=== PATIENT | female | born 1985 | race Caucasian/White ===

== ENCOUNTER 2022-07-04 19:45 | Inpatient (IN) | payer BC ==
[2022-07-04] MEDS ORDERED: Metoclopramide 10 MG/2 ML SDV IVPUSH ONE (21:17)
[2022-07-04] MEDS ORDERED: ceFAZolin 2 GM in Sodium Chloride 0.9% 50 ML IV ONE (21:17)
[2022-07-04] MEDS ORDERED: Sodium Chloride 0.9% 10 ML Syringe FLUSH PRN (21:17)
[2022-07-04] MEDS ORDERED: Citric Acid/Sodium Citrate Solution 30 ML Cup PO ONE (21:17)
[2022-07-04] MEDS ORDERED: Ketorolac 30 MG/ML SDV ONE (21:23)
[2022-07-04] MEDS ORDERED: Ondansetron 4 MG/2 ML SDV ONE (21:23)
[2022-07-04] MEDS ORDERED: Morphine PF 10 MG/10 ML SDV ONE (21:23)
[2022-07-04] MEDS ORDERED: ceFAZolin 2 GM Vial ONE (21:24)
[2022-07-04] MEDS ORDERED: Oxytocin/Lactated Ringers 10 UNIT/1,000 ML BAG IV SCH (21:30)
[2022-07-04] MEDS ORDERED: Lactated Ringers 1,000 ML IV SCH (21:30)
[2022-07-04] MEDS ORDERED: Bupivacaine 0.5% 30 ML SDV ONE (21:35)
[2022-07-04] MEDS ORDERED: fentaNYL 100 MCG/2 ML SDV IVPUSH PRN (21:44)
[2022-07-04] MEDS ORDERED: Ondansetron 4 MG/2 ML SDV IVPUSH PRN (21:44)
[2022-07-04] MEDS ORDERED: Meperidine 50 MG/ML Vial IVPUSH PRN (21:44)
[2022-07-04] MEDS ORDERED: diphenhydrAMINE 50 MG/ML SDV IVPUSH PRN (21:44)
[2022-07-04] MEDS ORDERED: Oxytocin 10 Units/1 ML SDV ONE ×2 (22:03)
[2022-07-05] MEDS ORDERED: Naloxone 0.4 MG/ML SDV IVPUSH PRN (00:14)
[2022-07-05] MEDS ORDERED: Ondansetron 4 MG/2 ML SDV IV PRN (00:14)
[2022-07-05] MEDS ORDERED: Docusate Sodium 100 MG Cap PO PRN (00:14)
[2022-07-05] MEDS ORDERED: diphenhydrAMINE 50 MG/ML SDV IVPUSH PRN (00:14)
[2022-07-05] MEDS ORDERED: Ibuprofen 600 MG Tab PO SCH (00:14)
[2022-07-05] MEDS ORDERED: Dextrose 5%-Lactated Ringers 1,000 ML IV SCH (00:14)
[2022-07-05] MEDS ORDERED: Acetaminophen/oxyCODONE 325-5 MG Tab PO PRN ×2 (00:14)
[2022-07-05] MEDS ORDERED: ePHEDrine 50 MG/ML SDV IVPUSH PRN (00:14)
[2022-07-05] MEDS: Ibuprofen 600 MG Tab PO SCH ×5 (03:30→21:45)
[2022-07-05] MEDS ORDERED: Sodium Chloride 0.9% 10 ML Syringe FLUSH SCH (09:00)
[2022-07-05] MEDS: Prenatal Multivitamin with Calcium/Folic Acid/Iron Tab PO SCH (15:16)
[2022-07-05] MEDS: Simethicone 80 MG Tab.Chew PO SCH ×3 (15:17→21:47)
[2022-07-06] MEDS: Ibuprofen 600 MG Tab PO SCH ×2 (05:30→11:21)
[2022-07-06] MEDS: Prenatal Multivitamin with Calcium/Folic Acid/Iron Tab PO SCH (11:22)
[2022-07-06] MEDS: Simethicone 80 MG Tab.Chew PO SCH (11:22)
[2022-07-06 11:26] VITALS: BP 104/55; PULSE 77
== END 2022-07-06 11:05 | disposition home or self-care (01) | DRG 540 ==
LOC: JD.OBCHECK 19:45 → JD.OB 19:53 → OBSVTOIN 22:16 → JD.OB 22:16
PROVIDERS: ADMIT Obstetrics & Gynecology; ATTEND Obstetrics & Gynecology
PROC: 10D00Z1 Extraction of Products of Conception, Low, Open Approach (ICD-10-PCS; principal; 2022-07-04)
DX: O32.1XX0 Maternal care for breech presentation, not applicable or unspecified (principal); O34.211 Maternal care for low transverse scar from previous cesarean delivery; Z3A.38 38 weeks gestation of pregnancy; Z37.0 Single live birth
CPT/HCPCS: 36415; 59025; 85025; 86592; 86850; 86900; 86901; A9270-GY; J0690; J1885; J2274; J2405; J2590; J2765; J3490; J7120; J7121